=== PATIENT | male | born 1965 | race Caucasian/White ===

== ENCOUNTER 2019-08-07 10:20 | Emergency (ER) | payer OTHER, SELFPAY ==
--- NOTE | ~2019-08-07 | XR_ITS ---
EXAMINATION: XR chest 2V DATE: 08/07/2019 10:58 INDICATION: Smoker presenting with cough and wheezing TECHNIQUE: frontal and lateral views of the chest were obtained. COMPARISON: None FINDINGS: The lungs are clear with no focal airspace opacities, pulmonary edema, pleural effusion or pneumothor ax. The cardiomediastinal silhouette is normal. Chronic appearing mild compression fracture with 20% anterior vertebral body height loss at the lower thoracic vertebral body, likely T10. IMPRESSION: 1. No acute cardiopulmonary disease. Reviewed, dictated and finalized at location A.
[2019-08-07 10:33] VITALS: BP 155/75; PULSE 66; RESP 16; TEMP 36.9; O2SAT 99
--- NOTE | 2019-08-07 10:46 | ED.URI ---
HPI - URI/Sore Throat General Chief Complaint: Upper Respiratory Infection Stated Complaint: sinus/ears clogged/congestion/cough Time Seen by Provider: 08/07/19 10:41 Source: patient and RN notes reviewed Mode of arrival: ambulatory Limitations: no limitations History of Present Illness HPI Narrative: Patient presents today complaining of a 10-day history of nasal congestion, bilateral ear pain, sneezing, productive cough. Denies shortness of breath or fever. Denies history of asthma or COPD. Patient does have diabetes for which he uses an insulin pump. He has been taking cold medicine with mild relief. Smokes 1 to 1.5 packs/day. Patient reports similar symptoms last month and was treated with antibiotics, which resolved his symptoms. MD elicited complaint: cough and nasal congestion Related Data Home Medications Medication Instructions Recorded Confirmed cetirizine mg 08/07/19 fluticasone propionate INTRANASAL 08/07/19 insulin lispro [Humalog U-100 08/07/19 Insulin] lisinopril EVERY OTHER DAY 08/07/19 Allergies Allergy/AdvReac Type Severity Reaction Status Date / Time No Known Allergies Allergy Unverified 12/13/15 14:04 Review of Systems Review of Systems: Narrative: CONSTITUTIONAL: Denies body aches, fever, chills, or sweats. EYES: Denies visual changes, redness, or discharge. ENT: Denies rhinorrhea, sore throat. + Congestion, sneezing, ear pain CARDIOVASCULAR: Denies chest pain, palpitations, or edema. RESPIRATORY: Denies dyspnea.+ Cough GASTROINTESTINAL: Denies abdominal pain, nausea, vomiting, or diarrhea. GENITOURINARY: Denies dysuria or hematuria. SKIN: Denies rash, itching, or wounds. MUSCULOSKELETAL: Denies back pain, joint pain, or myalgia. NEUROLOGIC: Denies headache, numbness, tingling, or weakness. PSYCH: Denies depression or anxiety. [facility] Past Medical History Medical History (Updated 08/07/19 @ 11:10 by Mis Berrios, VALENTINO, ) Diabetes Family History Family History (Updated 01/18/14 @ 07:13 by DOCTOR UNKNOWN) Father Family history of lung cancer Family history of lung disease Social History Social History (Updated 08/07/19 @ 10:49 by Mis L. Mihelcic, [employer], [place]) Smoking packs per day: 1.5 Smoking cigarettes per day: 30.0 Smoking status: Current every day smoker Tobacco type: cigarettes Alcohol intake: current Exam Narrative: Exam Narrative: GENERAL: Well-appearing, well-nourished, and in no acute distress. Appears older than stated age. HEAD: Normocephalic, atraumatic. EYES: EOMI. No redness or drainage. Conjunctivae normal. ENT: Mucous membranes pink and moist. Nares congested. No rhinorrhea. TMs normal bilaterally. Throat normal. Uvula midline. NECK: Normal AROM. Supple. Left posterior cervical chain lymphadenopathy. CHEST: No respiratory distress. Bilateral inspiratory and expiratory wheezing in all lobes. HEART: Regular rate and rhythm. No murmur appreciated. Normal peripheral pulses. EXTREMITIES: Normal range of motion. No edema. SKIN: Warm, dry, no rash. NEURO: No focal deficits. Alert and oriented x3. Gait steady. PSYCH: Normal affect. No signs of depression or anxiety. Course Vital Signs Vital signs: Vital Signs Temperature 98.5 F 08/07/19 10:33 Pulse Rate 66 08/07/19 10:33 Respiratory Rate 16 08/07/19 10:33 Blood Pressure 155/75 H 08/07/19 10:33 Pulse Oximetry 99 08/07/19 10:33 Temperature 98.5 F 08/07/19 10:33 Pulse Rate 66 08/07/19 10:33 Respiratory Rate 16 08/07/19 10:33 Blood Pressure 155/75 H 08/07/19 10:33 Pulse Oximetry 99 08/07/19 10:33 Reviewed. Pt has been instructed to follow up with his PCP regarding his elevated blood pressure today. MDM - URI/Sore Throat Differential Diagnosis Differential diagnosis: Likely upper respiratory infection, otitis media, sinusitis, viral infection, bronchitis and other (Pneumonia) Imaging Data Radiologist's impression: ITS Impressions Dorothy
== END 2019-08-07 11:14 | disposition home or self-care (01) ==
PROVIDERS: Emergency Provider Nurse Practitioner; PCP Internal Medicine
DX: J40 Bronchitis, not specified as acute or chronic (principal); J01.81 Other acute recurrent sinusitis; F17.210 Nicotine dependence, cigarettes, uncomplicated; E11.9 Type 2 diabetes mellitus without complications; Z96.41 Presence of insulin pump (external) (internal); Z79.4 Long term (current) use of insulin
CPT/HCPCS: 71046; 99213; G0463